=== PATIENT | female | born 2005 | race Caucasian/White ===

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

== ENCOUNTER 2023-08-03 13:16 | Emergency (ER) | payer MEDICAID, SELFPAY ==
[2023-08-03 13:17] VITALS: BP 142/91; PULSE 92; RESP 16; TEMP 36; O2SAT 100; BMI 29.9
--- NOTE | 2023-08-03 13:34 | US_ITS ---
STUDY: FIRST TRIMESTER OBSTETRICAL ULTRASOUND REASON FOR EXAM: Female, 17 years old vaginal bleeding LMP: June 10, 2023. TECHNIQUE: Transvaginal TECHNICAL QUALITY: Adequate. PRIOR ULTRASOUND: None. FINDINGS: There is visualization of a single gestational sac in a normal intrauterine position. The mean sac diameter (MSD) measures 2.8 mm, indicating an estimated gestational age (EGA) of 5 weeks, 0 days. The gestational sac shape is within normal limits. There is no demonstrated yolk sac. The placenta is non-visualized. There is no demonstrated embryo ( pole). The estimated gestation age (EGA) by LMP is 7 weeks, 5 days. The estimated date of delivery (RHIANNON) by LMP is March 16, 2024. The estimated gestation age (EGA) by US is 5 weeks, 0 days. The estimated date of delivery (RHIANNON) by US is April 04, 2024. The uterus measures 8 cm x 4.9 cm x 3.4 cm. The endometrium measures 1.1 cm. There is no demonstrated uterine fibroid. The cervix is closed. The right ovary measures 2.4 cm x 1.8 cm x 1.2 cm. There is no right ovarian cyst. There is no visualized right adnexal mass or complex lesion. The left ovary measures 3.2 cm x 2.5 cm x 1.4 cm. There is a 1.6 cm x 1.7 cm x 1.3 cm heterogeneous hypoechoic nodule suggestive of a corpus luteal cyst regressing. There is no visualized left adnexal mass or complex lesion. There is minimal fluid in the cul de sac. US/Transvaginal w/Preg US IMPRESSION: Intrauterine gestational sac without a pole. Correlation with follow-up sonogram or serial beta hCG is recommended for further evaluation. Electronically Signed: Sajan Parker MD at 15:05 EDT ,
--- NOTE | 2023-08-03 13:37 | ED.VIS.FEGU ---
HPI <IGNACIO Aguero - Last Filed: 08/03/23 15:20> HPI - Female History of Present Illness Chief Complaint: Vag Bld, Preg Narrative Narrative: Patient is a 17-year-old female with no significant medical history, patient is a 2 para 1. Patient states she last gave 16 months ago. Patient states that her last menstrual cycle was June 10, 2023. Patient states that she has not seen DISPLAY DECORATOR yet however she is established with a [facility] facility. Patient dates while she was at work at [employer], she developed some lower abdominal cramping, moderate amount of bleeding. Patient is concerned and is here for evaluation. She denies any fever or chills. She denies any concern for STI. PFS <IGNACIO Aguero - Last Filed: 08/03/23 15:20> [facility] Medical History (Updated 08/03/23 @ 15:[address] Yao Capone, DO) Laceration, obstetrical, first degree (spontaneous vaginal delivery) Gonorrhea complicating , first trimester Chlamydia infection affecting in first trimester Anemia affecting High risk teen , antepartum Spontaneous rupture of amniotic membranes Postmaturity , 40-42 weeks gestation Home Medications ?Medication ?Instructions ?Recorded ?Last Taken ?Type ferrous sulfate 325 mg (65 mg 325 mg PO DAILY anemia 03/24/22 03/23/22 15:00 History iron) tablet (Iron (ferrous sulfate)) [id number] 1 mg 1 tab PO DAILY 03/24/22 03/24/22 12:00 History tablet Allergy/AdvReac Type Severity Reaction Status Date / Time codeine Allergy Rash Verified 08/03/23 13:17 morphine Allergy Rash Verified 08/03/23 13:17 Surgical History History of surgery Social History Smoking Status: Never smoker ROS <IGNACIO Aguero - Last Filed: 08/03/23 15:20> ROS ED ROS Narrative Constitutional: Negative for fever, chills, weight loss, weakness Eyes: Negative for vision loss, vision change, double vision ENT: Negative for any sore throat, ear pain, congestion Cardiovascular: Negative for any chest pain, tightness, palpitations Respiratory: Negative for any cough, sputum production, hemoptysis, dyspnea, dyspnea on exertion, orthopnea Gastrointestinal: Negative for any nausea, vomiting, diarrhea, constipation, blood in stool, blood in vomit. Positive for abdominal pain : Negative for any urinary frequency, dysuria, retention, blood in urine. Positive for vaginal bleeding, Muscle skeletal: Negative for any neck pain, back pain Neurological: Negative for any headache, syncope, dizziness Skin: Negative for any rashes, itching, abrasions, lacerations Psychiatric: Negative for any depression, anxiety, stress, suicidal ideation, homicidal ideation Hematologic: Negative for any excessive bruising, easy bleeding EXAM <IGNACIO Aguero - Last Filed: 08/03/23 15:20> Physical Exam Narrative Exam Narrative: Vital signs reviewed. Patient appears to be in no obvious distress HEET: Head normocephalic atraumatic, TMs clear bilaterally. Posterior pharynx is clear, moist mucous membranes. Nares clear bilaterally. Neck: Supple with no lymphadenopathy or tenderness. No signs of meningismus. Cardiac: Regular rate and rhythm no murmurs gallops or rubs, equal peripheral pulses bilaterally. Respiratory: Lungs clear to auscultation bilaterally. No chest tenderness. Abdomen: Soft, nontender, nondistended. No abdominal bruit or pulsatile masses. No hepatosplenomegaly. No peritoneal signs. Active bowel sounds in all quadrants Extremities: No peripheral edema, no signs of gross trauma or deformity. Active full range of motion of all extremities. Neuro: Cranial nerves II through XII intact, no focal neurological deficits. Skin: Clean dry and intact with no rash, purpura, petechiae, vesicles or pustules. Backs/flank: No CVA tenderness, no midline spinal tenderness, no deformity. Psych: Normal mood and affect. No SI, HI or acute psychosis. Const Vital Signs: 08/03/23 13:17 08/03/23 13:17 08/03/23 15:16 Temperature 96.8 F L Temperature Source Temporal Pulse Rate 92 92 65 Respiratory Rate 16 16 18 Blood Pressure 142/91 H 142/91 H 137/89 H Blood Pressure Mean 108 108 105 Pulse Ox 100 100 97 Oxygen Delivery Method Room Air Room Air Room Air Positive well nourished and well developed General Appearance ED: well developed <Dr. Yao Capone DO - Last Filed: 08/03/23 16:22> Physical Exam Const Vital Signs: 08/03/23 13:17 08/03/23 13:17 08/03/23 15:16 Temperature 96.8 F L Temperature Source Temporal Pulse Rate 92 92 65 Respiratory Rate 16 16 18 Blood Pressure 142/91 H 142/91 H 137/89 H Blood Pressure Mean 108 108 105 Pulse Ox 100 100 97 Oxygen Delivery Method Room Air Room Air Room Air MDM <IGNACIO Aguero - Last Filed: 08/03/23 15:20> [facility] Lab Data Labs: Laboratory Results - last 24 hr 08/03/23 08/03/23 12:30 13:53 WBC 6.0 RBC 4.62 Hgb 12.2 Hct 39.4 MCV 85.3 MCH 26.4 L MCHC 31.0 L RDW Std Deviation 47.2 H RDW Coeff of Sahra 15.2 H Plt Count 271 MPV 12.4 H Immature Gran % (Auto) 0.300 Neut % (Auto) 53.9 Lymph % (Auto) 34.7 Harris % (Auto) 6.2 Eos % (Auto) 4.2 Baso % (Auto) 0.7 Absolute Neuts (auto) 3.2 Absolute Lymphs (auto) 2.08 Nucleated RBC % 0 Sodium 139 Potassium 4.0 Chloride 107 Carbon Dioxide 26.0 Anion Gap 6 BUN 8 Creatinine 0.69 Estim Creat Clear Calc 133.57 Est GFR (MDRD) Af Amer 141 Est GFR (MDRD) Non-Af 116 BUN/Creatinine Ratio 11.7 Glucose 106 Calcium 9.1 HCG, Quant 96 H Urine Color Yellow Urine Clarity Sl. Cloudy Urine pH 6.0 Ur Specific [place] 1.015 Urine Protein 30 H Urine Glucose (UA) Normal Urine Ketones Negative Urine Occult Blood 250 H Urine Nitrite Negative Urine Bilirubin Negative Urine Urobilinogen Normal Ur Leukocyte Esterase 25 H Urine RBC 25-50 SEEN Urine WBC 0-5 SEEN Ur Squamous Epith Cells 0-5 SEEN Urine Bacteria 1+ Urine Mucus 2+ Radiography Diagnostic Testing: Clinical Impression(s) from Imaging Studies Obstetrics Ultrasound 08/03/23 13:34 IMPRESSION: Intrauterine gestational sac without a pole. Correlation with follow-up sonogram or serial beta hCG is recommended for further evaluation. Electronically Signed: Sajan Parker MD at 15:05 EDT , Treatment and Re-Evaluation Narrative: Differential diagnosis includes however is not limited to: Ectopic , intrauterine , threatened miscarriage, UTI Patient appears to be in no obvious distress vital signs are stable. Patient is nontoxic-appearing. Presenting to the emergency department vaginal bleeding, patient states he might be close to 6 weeks with her last menstrual cycle being June 10, 2023. Patient is B +, the patient will receive basic laboratory values, hCG quantitative. Patient will receive a transvaginal ultrasound. Patient's laboratory values show a normal CBC, hemoglobin stable at 12.2. Chemistries were unremarkable, hCG quant was 96. This is slightly low. Urinalysis showed 1+ bacteria 25-50 red blood cells, 25 leukocyte Estrace. Some blood. This to be sent for culture and placed on 5 days of Macrobid. Patient's transvaginal ultrasound showed intrauterine gestational sac without a pole. Correlate with follow-up on sonogram with serial beta hCG is recommended for further evaluation. Secondary to this finding, I will reach out to DISPLAY DECORATOR, she does have an appointment in 3 days. <Dr. Yao Capone, DO - Last Filed: 08/03/23 16:22> [facility] Narrative Medical decision making narrative: I have personally performed a face to face assessment of the patient and have reviewed the MILO Note. I performed a substantive portion of the visit including all aspects of the following. My lewis findings include: History is [patient presents to the emergency department complaint of vaginal bleeding that started about 2 hours ago. Patient thinks she is about 6 weeks . Last period was June 09. She describes some lower abdominal cramping. She was scheduled to have her first DISPLAY DECORATOR visit in 3 days. Patient is G2, P1.] Exam is [HEENT-PERRLA, EOMI. Cranial nerves II through XII grossly intact. TMs clear. Mucous membranes moist. No adenopathy. Cardiovascular-regular rate and rhythm without murmur or ectopy Lungs-clear to auscultation, chest wall stable without crepitus or subcu emphysema Abdomen-normoactive bowel sounds, soft, nontender, no rebound or rigidity, no peritoneal signs. Extremities-intact ?4, normal range of motion, normal pulses, atraumatic] Medical Decison Making [will obtain basic labs as well as quantitative hCG and urine. Will obtain a pelvic ultrasound to evaluate further to rule out ectopic.] Pelvic ultrasound did show gestational sac within the uterus but no pole. Quant was only 96. Patient will require repeat quant and likely repeat ultrasound. Will discuss with DISPLAY DECORATOR on-call to arrange close follow-up. Clinically she looks well. Suspect likely threatened first trimester. Other additions or changes: [None] Lab Data Attestation: I reviewed the patient's lab results. Labs: Laboratory Results - last 24 hr 08/03/23 08/03/23 12:30 13:53 WBC 6.0 RBC 4.62 Hgb 12.2 Hct 39.4 MCV 85.3 MCH 26.4 L MCHC 31.0 L RDW Std Deviation 47.2 H RDW Coeff of Sahra 15.2 H Plt Count 271 MPV 12.4 H Immature Gran % (Auto) 0.300 Neut % (Auto) 53.9 Lymph % (Auto) 34.7 Harris % (Auto) 6.2 Eos % (Auto) 4.2 Baso % (Auto) 0.7 Absolute Neuts (auto) 3.2 Absolute Lymphs (auto) 2.08 Nucleated RBC % 0 Sodium 139 Potassium 4.0 Chloride 107 Carbon Dioxide 26.0 Anion Gap 6 BUN 8 Creatinine 0.69 Estim Creat Clear Calc 133.57 Est GFR (MDRD) Af Amer 141 Est GFR (MDRD) Non-Af 116 BUN/Creatinine Ratio 11.7 Glucose 106 Calcium 9.1 HCG, Quant 96 H Urine Color Yellow Urine Clarity Sl. Cloudy Urine pH 6.0 Ur Specific [place] 1.015 Urine Protein 30 H Urine Glucose (UA) Normal Urine Ketones Negative Urine Occult Blood 250 H Urine Nitrite Negative Urine Bilirubin Negative Urine Urobilinogen Normal Ur Leukocyte Esterase 25 H Urine RBC 25-50 SEEN Urine WBC 0-5 SEEN Ur Squamous Epith Cells 0-5 SEEN Urine Bacteria 1+ Urine Mucus 2+ Radiography Diagnostic Testing: Clinical Impression(s) from Imaging Studies Obstetrics Ultrasound 08/03/23 13:34 IMPRESSION: Intrauterine gestational sac without a pole. Correlation with follow-up sonogram or serial beta hCG is recommended for further evaluation. Electronically Signed: Sajan Parker MD at 15:05 EDT , Discharge Plan Triage Chief Complaint: Vag Bld, Preg ED Midlevel Provider: Timothy Pastor ED Provider: Yao Capone Dx/Rx/DC Orders Clinical Impression: Threatened in early Instructions: Miscarriage Threatened Prescriptions: No Action 1 mg Tablet 1 tab PO DAILY ferrous sulfate [Iron (ferrous sulfate)] 325 mg (65 mg iron) Tablet 325 mg PO DAILY Primary Care Provider: Eric Miller Referrals: Ohpelia Minor MD [Med Staff - Active Staff] - Keep Helen appointment Eric Miller DO [Primary Care Provider] - Print Language: Czech Disposition Disposition: Home, Self Care
[2023-08-03 13:53] LABS: Absolute Lymphocyte Count 2.08 X10^3/uL (0.83-4.51); Absolute Neutrophil Count 3.2 X10^3/uL (2.0-7.7); Basophil# 0.04 X10^3/uL; Basophil% 0.7 % (0-1); Eosinophil# 0.25 X10^3/uL; Eosinophils% 4.2 % (0-5); Hematocrit 39.4 % (37-47); Hemoglobin 12.2 g/dL (12.0-15.0); Lymphocyte # 2.08 X10^3/ul (0.83-4.51); Lymphocyte % 34.7 % (19-41); Mean Corpuscular Hgb 26.4 pg (27.0-32.0); Mean Corpuscular Volume 85.3 fL (81-99); Mean Platelet Vol. 12.4 fl (6.2-12.0); Monocyte# 0.37 X10^3/uL; Monocyte% 6.2 % (0-10); NRBC Flagged by Analyzer 0 % (0-5); Neutrophil # 3.24 X10^3/uL (2.7-7.7); Neutrophil % 53.9 % (47-70); Platelet Count 271 K/mm3 (150-450); RBC Distribution Width CV 15.2 % (11.6-14.6); RBC Distribution Width SD 47.2 fl (35.1-43.9); Red Blood Count 4.62 M/mm3 (4.2-5.4)
[2023-08-03 14:01] LABS: Color, Urine Yellow (Yellow); Glucose, Dipstick Normal (Normal); Ketone-Dipstick Negative (Negative); Leukocyte Esterase-Dipstick 25 /ul (Negative); Nitrite-Dipstick Negative (Negative); Occult Blood-Urine 250 /ul (Negative); Protein-Dipstick 30 mg/dl (Negative); Specific Gravity, Urine 1.015 (1.002-1.030); Urine Bilirubin Dipstick Negative (Negative); Urine Clarity Sl. Cloudy (Clear); Urine Urobilinogen Normal (Normal)
[2023-08-03 14:06] LABS: Anion Gap 6 (5-15); BUN 8 mg/dL (7-18); BUN/Creat Ratio 11.7 RATIO (10-20); Calcium,Total 9.1 mg/dL (8.5-10.1); Chloride 107 mmol/L (98-107); Creatinine, Serum 0.69 mg/dL (0.55-1.02); EST Glomerular Filtration Rate 116 mL/min (>60); Est Glom Filt Rate - Afr Amer 141 mL/min (>60); Estimated Creatinine Clearance 133.57 ml/min; Glucose 106 mg/dL (74-106); Sodium Level 139 mmol/L (136-145)
[2023-08-03 14:10] LABS: hCG Titer Quant., Serum 96 mIU/mL (1-3)
[2023-08-03 14:14] LABS: Bacteria 1+ /hpf (None Seen); Mucous, Urine 2+ /hpf (<or=2+); Red Blood Cells-Urine 25-50 SEEN /hpf (0-5); Squamous Epithelial Cells - UA 0-5 SEEN /hpf (5-10); White Blood Cells 0-5 SEEN /hpf (0-5)
[2023-08-03 15:16] VITALS: BP 137/89; PULSE 65; RESP 18; O2SAT 97
== END 2023-08-03 16:38 | disposition home or self-care (01) ==
PROVIDERS: Nurse Practitioner; Emergency Provider Emergency Medicine; Visit Provider Emergency Medicine
DX: O20.0 Threatened abortion (principal); Z3A.01 Less than 8 weeks gestation of pregnancy; O99.891 Other specified diseases and conditions complicating pregnancy; R10.30 Lower abdominal pain, unspecified
CPT/HCPCS: 76817; 80048; 81001; 84702; 85025; 87086; 87088; 99282; A4216